=== PATIENT | male | born 1965 | race Caucasian/White ===

== ENCOUNTER → 2020-08-07 | Outpatient (CLI) | payer OTHER ==
[~2020-08-07] MED LIST: ALEVE220 MG PO; AMLO10 PO; DICL75ER PO; LISI5 PO; PRAV20 PO; TRIA15CR3 TOP
== END | disposition home or self-care (01) ==
LOC: LAB SHORT 19:11 → LAB 19:11
DX: R31.9 Hematuria, unspecified (principal)
CPT/HCPCS: 87086